=== PATIENT | female | born 1935 | race Caucasian/White ===

== ENCOUNTER 2022-11-13 23:26 | Observation (INO) | payer MEDICARE, SELFPAY ==
[2022-11-13 23:36] VITALS: BP 127/84; PULSE 111; PULSE 149; RESP 18; O2SAT 97
[2022-11-13 23:44] VITALS: TEMP 36.6
[2022-11-14] VITALS (13 sets, daily range): BP systolic 87–163; BP diastolic 45–76; PULSE 72–114; RESP 12–30; TEMP 36.3–37.3; O2SAT 93–99; BMI 26.6
--- NOTE | 2022-11-14 00:04 | ED.WEAKNESS1 ---
HPI - Weakness General Chief complaint: Weakness Stated complaint: GENERAL WEAKNESS Time Seen by Provider: 11/14/22 00:04 Source: patient and family Mode of arrival: walk-in Limitations: physical limitation History of Present Illness HPI Narrative: patient ill the past couple of days. Need to urinate frequently with small volumes of urine. Gen. weakness. chills today. Brought to the ER and after removing her clothing family and staff noticed her left arm was red. 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 Also complains of flank pain bilat and vomited at home x 3. Not short of breath. MD Complaint: Reports generalized weakness Related Data Home Medications Medication Instructions Recorded Confirmed amlodipine 2.5 mg tablet mg 11/13/22 clopidogrel 75 mg tablet mg 11/13/22 cyanocobalamin (vitamin B-12) mcg 11/13/22 1,000 mcg/mL injection solution donepezil 5 mg tablet mg 11/13/22 gabapentin 300 mg capsule mg 11/13/22 losartan 100 mg tablet mg 11/13/22 metaxalone 800 mg tablet mg 11/13/22 pioglitazone 15 mg tablet mg 11/13/22 quetiapine 25 mg tablet mg 11/13/22 Allergies Allergy/AdvReac Type Severity Reaction Status Date / Time No Known Drug Allergies Allergy Verified 11/14/22 00:23 Review of Systems ROS Status of ROS 10 or more systems reviewed and unremarkable except as noted in history and below Constitutional Reports: fever and chills Gastrointestinal Reports: nausea and vomiting Genitourinary Reports: urinary frequency and urinary urgency Exam Constitutional: Vital Signs - 24 hr 11/13/22 23:36 11/13/22 23:44 Temperature 97.8 F Pulse Rate [Monito r] 149 H Respiratory Rate 18 Blood Pressure [Ri ght Arm] 127/84 H Pulse Oximetry 97 Oxygen Delivery Me thod Room Air Other: appears gen. ill but in no distress HENMT: Common normals: normocephalic and head/scalp atraumatic Eye: Common normals: conjunctivae normal Lymph: Lymphatic: no lymphadenopathy noted Chest: Common normals: inspection of chest normal Respiratory: Common normals: normal respiratory effort, no use of accessory muscles and clear to auscultation bilaterally Cardio: Rate: tachycardic GI: Common normals: Normal to inspection, nondistended, normoactive bowel sounds present and soft to palpation Back & Pelvis: General back: CVA tenderness Extremity: Common normals: normal to inspection, normal capillary refill and no joint enlargement Other: lymph edema LUE and erythema of the left upper arm Neuro: Common normals: oriented x3, moves all extremities, no focal motor deficits and no sensory deficits noted Psych: Common normals: mental status grossly normal Skin: Common normals: no wounds Course Vital Signs Vital signs: Vital Signs Pulse Rate 149 H 11/13/22 23:36 Respiratory Rate 18 11/13/22 23:36 Blood Pressure 127/84 H 11/13/22 23:36 Pulse Oximetry 97 11/13/22 23:36 Oxygen Delivery Method Room Air 11/13/22 23:36 Temperature 97.8 F 11/13/22 23:44 Pulse Rate 149 H 11/13/22 23:36 Respiratory Rate 18 11/13/22 23:36 Blood Pressure 127/84 H 11/13/22 23:36 Pulse Oximetry 97 11/13/22 23:36 Oxygen Delivery Method Room Air 11/13/22 23:36 MDM - Weakness MDM Narrative Medical decision making narrative: patient present from home with urinary frequency, urgency, chills. Exam with finding of left arm cellulitis. UA positive. she is also hyponatremic at 128 sodium. Treated in the department with clindamycin and Rocephin. Discussed with the hospitalist and patient is accepted for admission Lab Data Labs: Lab Results 11/14/22 11/14/22 Range/Units 00:00 01:20 WBC 12.5 H (4.0-11.0) 10^3/uL RBC 3.59 L (4.20-5.40) 10^6/uL Hgb 11.5 L (12.0-16.0) g/dL Hct 34.7 L (36.0-48.0) % MCV 96.7 (81.0-99.0) fL MCH 32.0 (26.7-34.0) pg MCHC 33.1 (29.9-35.2) g/dL RDW 12.8 (11.0-15.0) % Plt Count 245 (150-450) 10^3/uL MPV 10.0 (9.5-13.5) fL Neut % (Auto) 84.5 H (43.0-75.0) % Lymph % (Auto) 8.7 L (20.5-60.0) % [place] % (Auto) 5.9 (1.7-12.0) % Eos % (Auto) 0.1 L (0.9-7.0) % Baso % (Auto) 0.1 L (0.2-2.0) % Neut # (Auto) 10.6 H (1.4-6.5) 10^3/uL Lymph # (Auto) 1.1 L (1.2-3.8) 10^3/uL [place] # (Auto) 0.7 (0.3-0.8) 10^3/uL Eos # (Auto) 0.0 (0.0-0.7) 10^3/uL Baso # (Auto) 0.0 (0.0-0.1) 10^3/uL Sodium 128 L (136-145) mmol/L Potassium 3.5 (3.5-5.1) mmol/L Chloride 95 L (98-107) mmol/L Carbon Dioxide 22.5 (21.0-32.0) mmol/L Anion Gap 14.0 BUN 17.0 (7.0-18.0) mg/dL Creatinine 1.00 (0.55-1.02) mg/dL Est GFR ( Amer) >60 (>=60) Est GFR (Non-Af Amer) 52 L (>=60) BUN/Creatinine Ratio 17.0 Glucose 135 H (74-106) mg/dL Lactate 1.2 (0.4-2.0) mmol/L Calcium 9.0 (8.5-10.1) mg/dL Troponin I High Sens 19.2 (4.0-51.3) pg/mL NT-Pro-B Natriuret Pep 1699.0 (<=1800.0) pg/mL Urine Color Yellow (YELLOW) Urine Clarity Clear (CLEAR) Urine pH 5.0 (5.0-9.0) Ur Specific [place] 1.025 (1.005-1.025) Urine Protein Trace (NEG/TRACE) mg/dL Urine Glucose (UA) Negative (NEGATIVE) mg/dL Urine Ketones Negative (NEGATIVE) mg/dL Urine Occult Blood Trace-i (NEGATIVE) Urine Nitrite Positive A (NEGATIVE) Urine Bilirubin Negative (NEGATIVE) Urine Urobilinogen 0.2 (0.2-1.0) EU/dL Ur Leukocyte Esterase Small A (NEGATIVE) Urine RBC 0-2 (0-2) #/HPF Urine WBC 10-20 A (NONE SEEN) #/HPF Ur Squamous Epith Cells Few A (NONE/RARE) #/LPF Ur Culture Indicated? Yes Discharge Plan Discharge Chief Complaint: Weakness Clinical Impression: Urinary tract infection, Cellulitis of arm, left Patient Disposition: Admitted As Inpatient
--- NOTE | 2022-11-14 00:10 | XR_ITS ---
The [address] [address] Patient Name: RUDY MANCERA MRN: [id number] date: 1935 Sex: F Assigned Patient Location: ER Current Patient Location: Accession/Order Number: [id number] Exam Date: 11/14/2022 00:27 Report Date: 11/14/2022 00:54 At the request of: TUNG ACOSTA Procedure: XR chest 1V CXR HISTORY: Shortness of breath. COMPARISON: None. TECHNIQUE: 1 view of the chest submitted for review. FINDINGS: Clips are seen in the left upper lobe. The lungs are hyperaerated. The cardiac silhouette measures within normal. Pulmonary vascularity is unremarkable. Osseous structures are normal for age. IMPRESSION: No plain film evidence of acute cardiopulmonary abnormality. Electronically authenticated by: DANIE ERIC Date: 11/14/2022 00:54
--- NOTE | 2022-11-14 00:10 | ECG_ITS ---
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
[2022-11-14 01:22] LABS: Basophils Percent Auto 0.1 % (0.2-2.0); Eosinophils Percent Auto 0.1 % (0.9-7.0); Hematocrit 34.7 % (36.0-48.0); Hemoglobin 11.5 g/dL (12.0-16.0); Immature Granulocytes Abs Auto 0.09 10^3/uL (0.00-0.03); Immature Granulocytes Pct Auto 0.7 % (0.0-0.5); Lymphocytes Absolute Auto 1.1 10^3/uL (1.2-3.8); Lymphocytes Percent Auto 8.7 % (20.5-60.0); Mean Corpuscular HGB Conc 33.1 g/dL (29.9-35.2); Mean Corpuscular Volume 96.7 fL (81.0-99.0); Monocytes Absolute Auto 0.7 10^3/uL (0.3-0.8); Monocytes Percent Auto 5.9 % (1.7-12.0); Neutrophils Absolute Auto 10.6 10^3/uL (1.4-6.5); Neutrophils Percent Auto 84.5 % (43.0-75.0); Platelet Count 245 10^3/uL (150-450); Red Blood Count 3.59 10^6/uL (4.20-5.40); Red Cell Distribution Width 12.8 % (11.0-15.0); White Blood Count 12.5 10^3/uL (4.0-11.0)
[2022-11-14 01:29] LABS: Lactate/Lactic Acid 1.2 mmol/L (0.4-2.0)
[2022-11-14 01:35] LABS: Carbon Dioxide 22.5 mmol/L (21.0-32.0); Chloride 95 mmol/L (98-107); Estimated GFR (African America >60 (>=60); Estimated GFR (Non-African Ame 52 (>=60); Glucose 135 mg/dL (74-106); Potassium 3.5 mmol/L (3.5-5.1); Sodium 128 mmol/L (136-145); Troponin I High Sensitivity 19.2 pg/mL (4.0-51.3)
[2022-11-14 01:46] LABS: Bilirubin Urine NEGATIVE (NEGATIVE); Blood Urine TRACE-I (NEGATIVE); Clarity Urine CLEAR (CLEAR); Color Urine YELLOW (YELLOW); Glucose Urine UA NEGATIVE (NEGATIVE); Ketones Urine NEGATIVE (NEGATIVE); Leukocyte Esterase Urine SMALL (NEGATIVE); Nitrite Urine POSITIVE (NEGATIVE); Protein Urine TRACE mg/dL (NEG/TRACE); Specific Gravity Urine 1.025 (1.005-1.025); Urobilinogen Urine 0.2 EU/dL (0.2-1.0)
[2022-11-14 01:53] LABS: Bacteria Urine SMALL #/HPF (NONE SEEN); Cast Seen? NONE SEEN #/LPF (NONE SEEN); Crystals Seen? None Seen #/HPF (None Seen); Mucus Urine NONE SEEN (NONE SEEN); RBC Urine 0-2 #/HPF (0-2); Squamous Epithelial Cell Urine FEW #/LPF (NONE/RARE); Urine Culture Indicated YES
[2022-11-14] MEDS: 0.9 % SODIUM CHLORIDE 1,000 ML 999 ML IV (02:03)
[2022-11-14] MEDS: CLINDAMYCIN PHOSPHATE/D5W 900 MG/50 ML PIGGYBACK 50 MG IV (02:09)
[2022-11-14 03:32] LABS: Lactate/Lactic Acid 0.5 mmol/L (0.4-2.0)
[2022-11-14] MEDS: CEFTRIAXONE 1,000 MG in 0.9 % SODIUM CHLORIDE 50 ML 100 MG IV (03:49)
--- NOTE | 2022-11-14 04:05 | ECG_ITS ---
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
--- NOTE | 2022-11-14 04:06 | PC.NURSE ---
verified physician saw patients EKG with rapid atrial rhythm and patient still ok for medsurg. got new ekg, Dr. schneider states she is ok for medsurg.
--- NOTE | 2022-11-14 04:59 | PC.NURSE ---
Patient admitted to [facility] floor, report given to amdaor MENDIETA, patient was placed on bedside cammode, RN denied any farther needs before patient left in their care
--- NOTE | 2022-11-14 09:32 | US_ITS ---
The [address] [address] Patient Name: RUDY MANCERA MRN: [id number] date: 1935 Sex: F Assigned Patient Location: [place] Current Patient Location: [place] Accession/Order Number: [id number] Exam Date: 11/14/2022 12:59 Report Date: 11/14/2022 14:08 At the request of: LEAH CAMACHO Procedure: US venous doppler UE LT US venous doppler UE LT, 11/14/2022 12:59 PM EDT, INDICATION: CELLULITIS OF LT ARM COMPARISON: None available at the time of dictation. FINDINGS: There is no evidence for acute deep venous thrombosis in the left upper extremity. Specifically, the left internal jugular, subclavian, axillary, and paired brachial veins were evaluated; compression and augmentation were applied where possible. Color and spectral Doppler imaging demonstrates appropriate spontaneous flow, cardiac pulsatility, and variation with respiration. The left cephalic vein is poorly evaluated due to edema. The left basilic vein is patent. IMPRESSION: No evidence of acute deep venous thrombus in the left upper extremity. Electronically authenticated by: RANJAN ALEJANDRO Date: 11/14/2022 14:08
[2022-11-14] MEDS: 0.9 % SODIUM CHLORIDE 1,000 ML 100 ML IV (09:56)
[2022-11-14] MEDS: CLINDAMYCIN PHOSPHATE/D5W 600 MG/50 ML PIGGYBACK 50 MG IV (10:04)
[2022-11-14 10:51] LABS: Basophils Percent Auto 0.1 % (0.2-2.0); Eosinophils Absolute Auto 0.1 10^3/uL (0.0-0.7); Eosinophils Percent Auto 0.9 % (0.9-7.0); Hematocrit 34.3 % (36.0-48.0); Hemoglobin 11.3 g/dL (12.0-16.0); Immature Granulocytes Abs Auto 0.02 10^3/uL (0.00-0.03); Immature Granulocytes Pct Auto 0.2 % (0.0-0.5); Lymphocytes Percent Auto 12.5 % (20.5-60.0); Mean Corpuscular HGB Conc 32.9 g/dL (29.9-35.2); Mean Corpuscular Volume 97.2 fL (81.0-99.0); Mean Platelet Volume 9.8 fL (9.5-13.5); Monocytes Absolute Auto 0.7 10^3/uL (0.3-0.8); Monocytes Percent Auto 8.8 % (1.7-12.0); Neutrophils Absolute Auto 6.3 10^3/uL (1.4-6.5); Neutrophils Percent Auto 77.5 % (43.0-75.0); Platelet Count 215 10^3/uL (150-450); Red Blood Count 3.53 10^6/uL (4.20-5.40); White Blood Count 8.2 10^3/uL (4.0-11.0)
[2022-11-14 12:05] LABS: Anion Gap 15.5; BUN Creatinine Ratio 20.3; Calcium 8.9 mg/dL (8.5-10.1); Carbon Dioxide 23.1 mmol/L (21.0-32.0); Chloride 100 mmol/L (98-107); Estimated GFR (African America >60 (>=60); Estimated GFR (Non-African Ame >60 (>=60); Glucose 92 mg/dL (74-106); Potassium 3.6 mmol/L (3.5-5.1); Sodium 135 mmol/L (136-145)
--- NOTE | 2022-11-14 14:38 | PM.HP ---
H&P: HPI History of Present Illness Chief complaint: GENERAL WEAKNESS Narrative: Patient had not been feeling well for couple days, urinary tract infection symptoms, changed to clear this morning in family and staff found her left arm to be erythematous and swelled. Presented to the emergency room. Cellulitis left upper extremity and acute UTI. Patient is admitted for work-up and treatment of same Review of Systems ROS Status of ROS 10 or more systems reviewed and unremarkable except as noted in history and below Constitutional Reports: fever and chills Genitourinary Reports: painful urination and urinary frequency PFSH PFSH Social History Gender Identity: female Meds Home Medications and Allergies Home Medications Medication Instructions Recorded Confirmed Type amlodipine 2.5 mg tablet 2.5 mg PO DAILY 11/13/22 11/14/22 History clopidogrel 75 mg tablet 75 mg PO DAILY 11/13/22 11/14/22 History cyanocobalamin (vitamin B-12) 1,000 mcg IM .once monthly 11/13/22 11/14/22 History 1,000 mcg/mL injection solution donepezil 5 mg tablet 10 mg PO BEDTIME 11/13/22 11/14/22 History gabapentin 300 mg capsule 300 mg PO Q12H 11/13/22 11/14/22 History losartan 100 mg tablet 100 mg PO DAILY 11/13/22 11/14/22 History metaxalone 800 mg tablet 800 mg PO BEDTIME 11/13/22 11/14/22 History pioglitazone 15 mg tablet 15 mg PO DAILY 11/13/22 11/14/22 History quetiapine 25 mg tablet 25 mg PO BEDTIME 11/13/22 11/14/22 History acetaminophen 325 mg tablet 650 mg PO BID 11/14/22 11/14/22 History omeprazole 20 mg capsule,delayed 20 mg PO DAILY 11/14/22 11/14/22 History release sodium chloride 1 gram tablet 1,000 mg PO BID 11/14/22 11/14/22 History Allergies Allergy/AdvReac Type Severity Reaction Status Date / Time No Known Drug Allergies Allergy Verified 11/14/22 00:23 Exam Constitutional Vital Signs - 24 hr 11/13/22 23:36 11/13/22 23:44 11/13/22 23:36 Temperature 97.8 F Pulse Rate 111 H Pulse Rate [Monitor] 149 H Respiratory Rate 18 18 Blood Pressure 127/84 H Blood Pressure [Right Arm] 127/84 H Pulse Oximetry 97 Oxygen Delivery Method Room Air 11/14/22 01:28 11/14/22 01:30 11/14/22 02:00 Temperature Pulse Rate 114 H 93 H 88 Pulse Rate [Monitor] Respiratory Rate 30 H 16 16 Blood Pressure 126/73 H 87/63 L 92/50 L Blood Pressure [Right Arm] Pulse Oximetry 98 Oxygen Delivery Method 11/14/22 02:30 11/14/22 03:00 11/14/22 03:30 Temperature Pulse Rate 74 95 H 72 Pulse Rate [Monitor] Respiratory Rate 12 13 12 Blood Pressure 112/51 L 106/53 L 99/45 L Blood Pressure [Right Arm] Pulse Oximetry 99 97 98 Oxygen Delivery Method 11/14/22 04:00 11/14/22 04:47 11/14/22 04:59 Temperature Pulse Rate 72 88 Pulse Rate [Monitor] Respiratory Rate 13 16 Blood Pressure 108/46 L Blood Pressure [Right Arm] 124/67 H Pulse Oximetry 98 94 L Oxygen Delivery Method Room Air Room Air 11/14/22 04:59 11/14/22 06:02 11/14/22 06:02 Temperature 97.4 F L Pulse Rate 88 Pulse Rate [Monitor] Respiratory Rate 20 Blood Pressure Blood Pressure [Right Arm] 124/67 H Pulse Oximetry 94 L 94 L Oxygen Delivery Method Room Air Room Air Room Air 11/14/22 12:26 Temperature Pulse Rate Pulse Rate [Monitor] Respiratory Rate Blood Pressure Blood Pressure [Right Arm] Pulse Oximetry 93 L Oxygen Delivery Method Room Air [facility] Common normals: normocephalic Nose: mucous membranes and turbinates abnormal Chest Chest: abnormal inspection of the chest Respiratory Common normals: normal respiratory effort and no retractions Cardio Common normals: regular rate and regular rhythm GI Common normals: soft to palpation and non-tender Inspection: normal to inspection Extremity Common normals: abnormal to inspection Left upper extremity: upper arm (Cellulitis-erythema inside line of demarcation) and lower arm (Erythema with inside of the line of demarcation) Results Labs Labs: Short CBC 11/14/22 11/14/22 Range/Units 00:00 10:15 WBC 12.5 H 8.2 (4.0-11.0) 10^3/uL Hgb 11.5 L 11.3 L (12.0-16.0) g/dL Hct 34.7 L 34.3 L (36.0-48.0) % Plt Count 245 215 (150-450) 10^3/uL BMP 11/14/22 11/14/22 00:00 10:15 Sodium 128 L 135 L Potassium 3.5 3.6 Chloride 95 L 100 Carbon Dioxide 22.5 23.1 BUN 17.0 15.0 Creatinine 1.00 0.74 Glucose 135 H 92 Calcium 9.0 8.9 Urine 11/14/22 Range/Units 01:20 Urine Color Yellow (YELLOW) Urine Clarity Clear (CLEAR) Urine pH 5.0 (5.0-9.0) Ur Specific [place] 1.025 (1.005-1.025) Urine Protein Trace (NEG/TRACE) mg/dL Urine Glucose (UA) Negative (NEGATIVE) mg/dL Assessment and Plan Assessment and Plan (1) Urinary tract infection: (2) Cellulitis of arm, left: Plan Patient mated with erythema evidence of cellulitis of left upper extremity-check on blood cultures for fever, continue with antibiotics, check ultrasound to rule out DVT, patient with a history of mastectomy bilateral Acute UTI-check on urine cultures, antibiotics as above Iron deficiency anemia-supplement as needed Hypertension-continue with home medications, may need adjusted Alzheimer's type dementia-continue with current medications, patient currently stable NIDDM-on Actos-continue with that and insulin sliding scale
[2022-11-14] MEDS: CLINDAMYCIN PHOSPHATE/D5W 300 MG/50 ML PIGGYBACK 100 MG IV ×2 (17:52→22:07)
[2022-11-14] MEDS: KETOROLAC TROMETHAMINE 30 MG/ML VIAL 15 MG IVP (20:34)
[2022-11-15] MEDS: CEFTRIAXONE 1,000 MG in 0.9 % SODIUM CHLORIDE 50 ML 100 MG IV (02:13)
[2022-11-15] MEDS: CLINDAMYCIN PHOSPHATE/D5W 300 MG/50 ML PIGGYBACK 100 MG IV ×4 (05:12→22:03)
[2022-11-15 05:24] VITALS: BP 146/62; PULSE 89; RESP 16; TEMP 36.7; O2SAT 93
[2022-11-15 10:00] LABS: Basophils Percent Auto 0.4 % (0.2-2.0); Eosinophils Absolute Auto 0.1 10^3/uL (0.0-0.7); Eosinophils Percent Auto 1.9 % (0.9-7.0); Hematocrit 35.6 % (36.0-48.0); Hemoglobin 11.6 g/dL (12.0-16.0); Immature Granulocytes Abs Auto 0.02 10^3/uL (0.00-0.03); Immature Granulocytes Pct Auto 0.4 % (0.0-0.5); Lymphocytes Absolute Auto 0.6 10^3/uL (1.2-3.8); Lymphocytes Percent Auto 11.3 % (20.5-60.0); Mean Corpuscular HGB Conc 32.6 g/dL (29.9-35.2); Mean Corpuscular Hemoglobin 31.8 pg (26.7-34.0); Mean Corpuscular Volume 97.5 fL (81.0-99.0); Monocytes Absolute Auto 0.6 10^3/uL (0.3-0.8); Neutrophils Absolute Auto 3.9 10^3/uL (1.4-6.5); Platelet Count 154 10^3/uL (150-450); Red Blood Count 3.65 10^6/uL (4.20-5.40); Red Cell Distribution Width 13.1 % (11.0-15.0); White Blood Count 5.3 10^3/uL (4.0-11.0)
[2022-11-15 10:21] LABS: Alanine Aminotransferase 17 U/L (14-59); Albumin Globulin Ratio 0.8; Alkaline Phosphatase 80 U/L (46-116); Anion Gap 16.2; Aspartate Amino Transferase 19 U/L (15-37); BUN Creatinine Ratio 13.8; Bilirubin Total 0.2 mg/dL (0.2-1.0); Calcium 8.6 mg/dL (8.5-10.1); Carbon Dioxide 20.3 mmol/L (21.0-32.0); Chloride 103 mmol/L (98-107); Estimated GFR (African America >60 (>=60); Estimated GFR (Non-African Ame 56 (>=60); Glucose 153 mg/dL (74-106); Potassium 3.5 mmol/L (3.5-5.1); Sodium 136 mmol/L (136-145)
--- NOTE | 2022-11-15 12:11 | P.PN_ITS ---
Progress Note: Subjective Subjective Interval history: Patient does not feel significantly better from the previous day. Still with significant PEEP weakness, generalized fatigue. Arm feels somewhat better with less swelling. Exam Constitutional Vital Signs - 24 hr 11/14/22 12:26 11/14/22 14:51 11/14/22 19:41 Temperature 97.6 F Pulse Rate 75 Respiratory Rate 16 Blood Pressure [Right Arm] 130/76 H Pulse Oximetry 93 L 94 L 96 Oxygen Delivery Method Room Air Room Air Room Air 11/14/22 22:36 11/15/22 05:24 Temperature 99.1 F 98.1 F Pulse Rate 109 H 89 Respiratory Rate 18 16 Blood Pressure [Right Arm] 163/52 H 146/62 H Pulse Oximetry 97 93 L Oxygen Delivery Method Room Air Room Air HENMT Common normals: normocephalic Head and scalp: normal to inspection Chest Common normals: inspection of chest normal Respiratory Common normals: normal respiratory effort Cardio Common normals: no JVD Rate: regular rate Rhythm: regular rhythm Heart sounds: S1 normal and S2 normal GI Common normals: Normal to inspection, nondistended, normoactive bowel sounds present Extremity Common normals: abnormal to inspection (Left arm with erythema that is now well inside the line of demarcation.) Neuro Common normals: oriented x3 (She seems generally lethargic) Progress Note: Objective Labs Labs: Short CBC 11/15/22 Range/Units 09:20 WBC 5.3 (4.0-11.0) 10^3/uL Hgb 11.6 L (12.0-16.0) g/dL Hct 35.6 L (36.0-48.0) % Plt Count 154 (150-450) 10^3/uL BMP 11/14/22 11/15/22 10:15 09:20 Sodium 135 L 136 Potassium 3.6 3.5 Chloride 100 103 Carbon Dioxide 23.1 20.3 L BUN 15.0 13.0 Creatinine 0.74 0.94 Glucose 92 153 H Calcium 8.9 8.6 Liver Function 11/15/22 Range/Units 09:20 Total Bilirubin 0.2 (0.2-1.0) mg/dL AST 19 (15-37) U/L ALT 17 (14-59) U/L Albumin 3.0 L (3.4-5.0) g/dL Progress Note: A&P Assessment and Plan (1) Urinary tract infection: (2) Cellulitis of arm, left: Plan Patient admitted with erythema evidence of cellulitis of left upper extremity- Patient is status post bilateral mastectomy. Ultrasound shows no DVT. Is improving. Continue with current antibiotic regiment Acute UTI-check on urine cultures, antibiotics as above Iron deficiency anemia-supplement as needed Hypertension-continue with home medications, may need adjusted Alzheimer's type dementia-continue with current medications, patient currently s table NIDDM-on Actos-continue with that and insulin sliding scale Medical treatment lasting more than 2 midnights, will change patient to inpatient status. With erythema improved but not resolved she may need an additional 2 more days Fall Risk Details Martinez Fall Scale Risk Level: Low Fall Risk Current Medications: Current Medications Acetaminophen (Acetaminophen 325 Mg Tablet) 650 mg PO Q4H PRN PRN Reason: Mild Pain Calcium Carbonate (Calcium Carbonate 500 Mg (200mg Elemental) Tab.Chew) 500 mg PO TID PRN PRN Reason: Dyspepsia Docusate Sodium (Docusate Sodium 100 Mg Capsule) 200 mg PO BID PRN PRN Reason: Constipation Hydralazine HCl (Hydralazine Hcl 20 Mg/Ml Vial) 10 mg IVP Q4H PRN PRN Reason: Hypertension Ceftriaxone Sodium 1,000 mg/ (Sodium Chloride) 50 mls @ 100 mls/hr IV Q24H RUDY Last Infusion: 06/04/23 07:09 Dose: Infused Clindamycin Phosphate/Dextrose (Cleocin Phosphate/D5w 300 Mg/50 Ml Piggyback) 300 mg in 50 mls @ 100 mls/hr IV Q6H [facility] Last Infusion: 11/15/22 07:08 Dose: Infused Ketorolac Tromethamine (Ketorolac Tromethamine 30 Mg/Ml Vial) 15 mg IVP Q6H PRN PRN Reason: Pain Last Admin: 11/14/22 20:34 Dose: 15 mg Ondansetron HCl (Ondansetron Pf 4 Mg/2 Ml Vial) 4 mg IV Q6H PRN PRN Reason: Nausea And Vomiting Temazepam (Temazepam 15 Mg Capsule) 15 mg PO BEDTIME PRN PRN Reason: Sleep Time Spent With Patient Time: Total time spent is greater than 50% in coordination of care (as documented) at patient's floor/unit and/or counseling patient:
[2022-11-15 14:34] VITALS: BP 160/65; PULSE 91; RESP 18; TEMP 36.6; O2SAT 94
[2022-11-15 19:48] VITALS: BP 178/74; PULSE 91; RESP 18; TEMP 36.8; O2SAT 95
[2022-11-15 20:25] VITALS: O2SAT 97
[2022-11-15] MEDS: 0.9 % SODIUM CHLORIDE 250 ML 10 ML IV (22:02)
[2022-11-16] MEDS: TEMAZEPAM 15 MG CAPSULE PO (00:10)
[2022-11-16] MEDS: CEFTRIAXONE 1,000 MG in 0.9 % SODIUM CHLORIDE 50 ML 100 MG IV (04:03)
[2022-11-16 04:37] VITALS: O2SAT 96
[2022-11-16] MEDS: CLINDAMYCIN PHOSPHATE/D5W 300 MG/50 ML PIGGYBACK 100 MG IV (04:40)
[2022-11-16 05:56] LABS: Basophils Percent Auto 0.4 % (0.2-2.0); Eosinophils Absolute Auto 0.2 10^3/uL (0.0-0.7); Eosinophils Percent Auto 3.7 % (0.9-7.0); Hematocrit 33.6 % (36.0-48.0); Hemoglobin 10.8 g/dL (12.0-16.0); Immature Granulocytes Abs Auto 0.01 10^3/uL (0.00-0.03); Immature Granulocytes Pct Auto 0.2 % (0.0-0.5); Lymphocytes Absolute Auto 1.1 10^3/uL (1.2-3.8); Lymphocytes Percent Auto 23.9 % (20.5-60.0); Mean Corpuscular HGB Conc 32.1 g/dL (29.9-35.2); Mean Corpuscular Hemoglobin 31.7 pg (26.7-34.0); Mean Corpuscular Volume 98.5 fL (81.0-99.0); Mean Platelet Volume 9.8 fL (9.5-13.5); Monocytes Absolute Auto 0.7 10^3/uL (0.3-0.8); Monocytes Percent Auto 15.1 % (1.7-12.0); Neutrophils Absolute Auto 2.6 10^3/uL (1.4-6.5); Neutrophils Percent Auto 56.7 % (43.0-75.0); Platelet Count 234 10^3/uL (150-450); Red Blood Count 3.41 10^6/uL (4.20-5.40); Red Cell Distribution Width 13.1 % (11.0-15.0); White Blood Count 4.6 10^3/uL (4.0-11.0)
[2022-11-16 05:57] LABS: Alanine Aminotransferase 18 U/L (14-59); Albumin Globulin Ratio 0.9; Alkaline Phosphatase 70 U/L (46-116); Anion Gap 11.4; Aspartate Amino Transferase 16 U/L (15-37); Bilirubin Total 0.3 mg/dL (0.2-1.0); Calcium 8.8 mg/dL (8.5-10.1); Carbon Dioxide 27.1 mmol/L (21.0-32.0); Chloride 104 mmol/L (98-107); Estimated GFR (African America >60 (>=60); Estimated GFR (Non-African Ame >60 (>=60); Globulin 3.5 g/dL; Glucose 86 mg/dL (74-106); Potassium 3.5 mmol/L (3.5-5.1); Sodium 139 mmol/L (136-145); Total Protein 6.5 g/dL (6.4-8.2)
[2022-11-16 06:00] VITALS: BP 176/86; PULSE 94; RESP 16; TEMP 36.8; O2SAT 94
[2022-11-16 07:39] VITALS: O2SAT 94
--- NOTE | 2022-11-16 09:27 | P.DS_ITS ---
DS: Providers Provider Date of admission: 11/14/22 04:20 Primary care physician: POP JIMENEZ Consults: 11/14/22 Consult to Intensive Care Anaesthetist Routine 11/15/22 12:05 Physical Therapy Eval and Treat Routine DS: Diagnosis Discharge Diagnosis (1) Urinary tract infection: (2) Cellulitis of arm, left: Plan Patient admitted with erythema evidence of cellulitis of left upper extremity Acute UTI- Iron deficiency anemia Hypertension- Alzheimer's type dementia- NIDDM-on Actos DS: Summary Hospital Course Hospital Course: Patient was admitted with increasing weakness at home. Found to have significant UTI but more concerning with a significant cellulitis and edema of her left upper extremity. She has a history of breast cancer status post bilateral mastectomies. Patient was placed on IV antibiotics. Laboratory evaluations daily. Her white blood cell count was initially elevated and then it improved throughout the hospital stay. Cultures were still pending yesterday but have returned today she does have E. coli in her urine. The erythema is improving with Rocephin for the cellulitis of her left lower extremity ultrasoun d was negative for DVT. We will discharge patient home on cefdinir for 10-day course and have her follow-up with her PCP within the next week and medications see list. Status at Discharge Functional status at discharge: uses cane/walker Time Spent with Patient Time attestation: Total time spent providing and/or coordinating discharge services: Exam Constitutional Vital Signs - 24 hr 11/15/22 14:34 11/15/22 15:34 11/15/22 19:48 Temperature 97.8 F 98.3 F Pulse Rate 91 H 91 H Respiratory Rate 18 18 Blood Pressure [Right Arm] 160/65 H 178/74 H Pulse Oximetry 94 L 95 Oxygen Delivery Method Room Air Room Air Room Air Fraction of Inspired Oxygen 94 11/15/22 20:25 11/16/22 04:37 11/16/22 06:00 Temperature 98.2 F Pulse Rate 94 H Respiratory Rate 16 Blood Pressure [Right Arm] 176/86 H Pulse Oximetry 97 96 94 L Oxygen Delivery Method Room Air Room Air Room Air Fraction of Inspired Oxygen 11/16/22 07:39 Temperature Pulse Rate Respiratory Rate Blood Pressure [Right Arm] Pulse Oximetry 94 L Oxygen Delivery Method Room Air Fraction of Inspired Oxygen Chest Common normals: inspection of chest normal Respiratory Common normals: normal respiratory effort Cardio Palpation: normal PMI Rate: regular rate Rhythm: regular rhythm Extremity Common normals: full ROM (Erythema much improved, inside line of demarcation, swelling also better); abnormal to inspection (Erythema of left upper extremity is improving. Well inside line of demarca) DS: Data Data Completed and Pending Labs on day of discharge: Labs from last 24 hours 11/16/22 11/15/22 04:46 09:20 WBC 4.6 5.3 RBC 3.41 L 3.65 L Hgb 10.8 L 11.6 L Hct 33.6 L 35.6 L MCV 98.5 97.5 MCH 31.7 31.8 MCHC 32.1 32.6 RDW 13.1 13.1 Plt Count 234 154 MPV 9.8 11.0 Neut % (Auto) 56.7 74.0 Lymph % (Auto) 23.9 11.3 L [place] % (Auto) 15.1 H 12.0 Eos % (Auto) 3.7 1.9 Baso % (Auto) 0.4 0.4 Neut # (Auto) 2.6 3.9 Lymph # (Auto) 1.1 L 0.6 L [place] # (Auto) 0.7 0.6 Eos # (Auto) 0.2 0.1 Baso # (Auto) 0.0 0.0 Sodium 139 136 Potassium 3.5 3.5 Chloride 104 103 Carbon Dioxide 27.1 20.3 L Anion Gap 11.4 16.2 BUN 7.0 13.0 Creatinine 0.78 0.94 Est GFR ( Amer) >60 >60 Est GFR (Non-Af Amer) >60 56 L BUN/Creatinine Ratio 9.0 13.8 Glucose 86 153 H Calcium 8.8 8.6 Total Bilirubin 0.3 0.2 AST 16 19 ALT 18 17 Total Protein 6.5 7.0 Albumin 3.0 L 3.0 L Globulin 3.5 4.0 Albumin/Globulin Ratio 0.9 0.8 Preliminary micro results at discharge 11/14/22 01:20 - Preliminary Urine,Clean Catch Escherichia coli Discharge Plan Discharge Disposition: Home, Self-Care Condition: Fair Discharge Medications: New calcium carbonate 200 mg calcium (500 mg) Tablet,Chewable 500 mg PO TID PRN (Reason: Dyspepsia) Qty: 60 0RF cefdinir 300 mg capsule 600 mg PO DAILY 10 Days Qty: 20 0RF Continued quetiapine 25 mg tablet 25 mg PO BEDTIME Rx Instructions: 0.5 tablet; pioglitazone 15 mg tablet 15 mg PO DAILY donepezil 5 mg tablet 10 mg PO BEDTIME amlodipine 2.5 mg tablet 2.5 mg PO DAILY clopidogrel 75 mg tablet 75 mg PO DAILY cyanocobalamin (vitamin B-12) 1,000 mcg/mL solution 1,000 mcg IM .once monthly Rx Instructions: intramuscularly; gabapentin 300 mg capsule 300 mg PO Q12H losartan 100 mg tablet 100 mg PO DAILY metaxalone 800 mg tablet 800 mg PO BEDTIME omeprazole 20 mg capsule,delayed release(DR/EC) 20 mg PO DAILY acetaminophen 325 mg tablet 650 mg PO BID sodium chloride 1 gram tablet 1,000 mg PO BID Patient Instructions: Cellulitis (GEN), Urinary Tract Infection in Older Adults (DC) 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 Phone number is [phone]. Forms: Portal Instructions Follow Up Appointments: Follow up with Dr Jimenez on wednesdayNovember 24 at 3:00 pm . Pt will have home health.
--- NOTE | 2022-11-16 10:19 | CM.NOTE ---
Rounds made with Dr. Teague. Normally lives with family members in [place] but they are on vacation and is staying with son in [place]. Normally walks without a walker but does use one on occasion. Plan for discharge is today.
[2022-11-16 11:43] VITALS: BMI 26.6
--- NOTE | 2022-11-16 12:36 | SWNOTE1 ---
LEON spoke with physical therapy and they are recommending HH and a walker for at home. LEON spoke with pt's son on phone. He is agreeable for pt to have HH come in, she had it in past. They would like [facility]. Pt has a walker at home already, btu son going to look into getting a new one. LEON let him know if pt got it under insurance within the last 5 years, then medicare will not pay for one. Pt's son is going to check with PCP. LEON sent referral to [facility].
--- NOTE | 2022-11-16 14:20 | SWNOTE1 ---
SW met with pt and updated her on [facility] and she is agreeable. SW reviewed the IMM form with pt, she voiced understanding and no questions/concerns. Pt signed form, copy placed in chart and original given to pt.
--- NOTE | 2022-11-19 09:56 | CM.DCFOLLOWU ---
SECOND CALL BACK ATTEMPTED ON 11/19 WITH NO ANSWER Person spoke with: How are you feeling? How is your pain? Did you understand your discharge instructions? Do you have any questions about your discharge instructions? Were you given any prescriptions at discharge? Were you able to get your prescriptions filled? Do you understand how to take your medications as ordered? Do you have any questions about your follow up appointment and do you plan to keep your follow up appointment? Is there anything else that you would like to discuss? Questions/Comments/Concerns/Other:
== END 2022-11-16 14:17 | disposition home health service (06) ==
LOC: ER 11-14 04:08 → MS 11-16 09:33
PROVIDERS: Admitting Provider Family Medicine; Emergency Provider Internal Medicine; PCP Family Medicine; Visit Provider Family Medicine
DX: N39.0 Urinary tract infection, site not specified (principal); L03.114 Cellulitis of left upper limb; Z90.13 Acquired absence of bilateral breasts and nipples; D50.9 Iron deficiency anemia, unspecified; I10 Essential (primary) hypertension; G30.9 Alzheimer's disease, unspecified; F02.80 Dementia in other diseases classified elsewhere, unspecified severity, without behavioral disturbance, psychotic disturbance, mood disturbance, and anxiety; E11.9 Type 2 diabetes mellitus without complications; Z85.3 Personal history of malignant neoplasm of breast; B96.20 Unspecified Escherichia coli [E. coli] as the cause of diseases classified elsewhere; R10.9 Unspecified abdominal pain; R11.10 Vomiting, unspecified; Z79.84 Long term (current) use of oral hypoglycemic drugs; R60.0 Localized edema
CPT/HCPCS: 36415; 71045; 80048; 80053; 81001; 83605; 83880; 84484; 85025; 87086; 87150; 87186; 93005; 93971; 94761; 96365; 96367; 96375; 96376; 97161; 99285; G0378